=== PATIENT | female | born 1965 | race American Indian/Alaskan Native ===

== ENCOUNTER 2020-09-25 05:41 | Emergency (ER) | payer OTHER, MEDICARE ==
[2020-09-25 06:27] VITALS: BP 141/62
--- NOTE | 2020-09-25 07:11 | XRay Report ---
CERVICAL SPINE 2 VIEWS INDICATION / CLINICAL INFORMATION: Neck pain. COMPARISON: None available. FINDINGS: BONES / JOINT(S): There is moderately severe degenerative disc disease at C4-5 and C5-6. Moderate deg enerative disc disease is present at C6-7. There is mild degenerative disc disease at C3-4. Mild ante rolisthesis of C3 on C4 is likely degenerative. There is no evidence of fracture or destructive lesio n. SOFT TISSUES: The prevertebral soft tissues are normal. ADDITIONAL FINDINGS: The visualized lung apices are clear. There is mild bilateral atherosclerotic ca lcification at the carotid bifurcations. Signer Name: Peter Cosby MD Signed: 09/25/2020 7:07 AM Workstation Name: [id number]
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
[2020-09-25] MEDS ORDERED: IBUPROFEN 600 MG TAB PO ONE (07:17)
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
== END 2020-09-25 08:18 | disposition home or self-care (01) ==
LOC: ED 05:41
DX: S16.1XXA Strain of muscle, fascia and tendon at neck level, initial encounter (principal); M50.321 Other cervical disc degeneration at C4-C5 level; M50.322 Other cervical disc degeneration at C5-C6 level; M50.323 Other cervical disc degeneration at C6-C7 level; F17.200 Nicotine dependence, unspecified, uncomplicated; V49.49XA Driver injured in collision with other motor vehicles in traffic accident, initial encounter; W22.10XA Striking against or struck by unspecified automobile airbag, initial encounter; Y93.89 Activity, other specified; Y92.410 Unspecified street and highway as the place of occurrence of the external cause; Y99.8 Other external cause status
CPT/HCPCS: 72040; 72125